=== PATIENT | female | born 1990 | race African-American/Black ===

== ENCOUNTER 2021-10-27 21:00 | Inpatient (IN) | payer OTHER ==
[2021-10-27] MEDS: DEXTROSE 5%-LACTATED RINGERS 1,000 ML IV SCH (23:15)
[2021-10-27] MEDS: MISOPROSTOL 100 MCG TABLET PV SCH (23:30)
[2021-10-28 00:06] LABS: BASO % 0.6 % (0-2.0); EOS % 2.8 % (0-4.5); HEMATOCRIT 31.1 % (32.4-45.2); HEMOGLOBIN 10.6 GM/dL (10.7-15.3); LYMPH % 18.4 % (8-40); MCH 27.3 pg (25.7-33.7); MCHC 34.2 g/dl (32.0-36.0); MEAN CELL VOLUME 79.9 fl (80-96); MEAN PLT VOLUME 7.2 fl (7.5-11.1); MONO % 10.4 % (3.8-10.2); NEUT % 67.8 % (42.8-82.8); PLATELET COUNT 323 10^3/uL (134-434); RBC 3.88 M/mm3 (3.60-5.2); RDW 15.3 % (11.6-15.6); WHITE BLOOD COUNT 6.4 K/mm3 (4.0-10.0)
[2021-10-28 00:30] LABS: INR 0.97 (0.83-1.09); PROTHROMBIN TIME (PATIENT) 11.1 SEC (9.7-13.0)
[2021-10-28 00:32] LABS: ACTIVATED PTT 26.7 SECONDS (25.2-36.5)
[2021-10-28 00:34] LABS: BLOOD UREA NITROGEN 8.6 mg/dL (7-18)
[2021-10-28 00:37] LABS: CREATININE 0.7 mg/dL (0.55-1.3)
[2021-10-28 02:30] VITALS: BMI 39.4
[2021-10-28] MEDS: MISOPROSTOL 100 MCG TABLET PV SCH (04:45)
[2021-10-28] MEDS ORDERED: FENTANYL/BUPIVACAINE/NS/PF - PCEA - 50 ML DISP.SYRIN EP ONE ×3 (08:07→16:51)
[2021-10-28] MEDS ORDERED: SODIUM CHLORIDE 1,000 ML IV STA ×2 (08:23→09:30)
[2021-10-28] MEDS: FENTANYL/BUPIVACAINE/NS/PF - PCEA - 50 ML DISP.SYRIN EP SCH ×2 (08:50→13:03)
[2021-10-28] MEDS ORDERED: NALOXONE HCL 0.4 MG/ML VIAL IVPUSH PRN (09:17)
[2021-10-28] MEDS ORDERED: OXYTOCIN 30 UNITS in 0.9% NS 30 UNIT/500 ML INFUS.BAG IVPB ONE (14:00)
[2021-10-28] MEDS ORDERED: BUPIVACAINE HCL/PF 0.25% (2.5MG/ML) 10 ML VIAL ONE (14:21)
[2021-10-28] MEDS: OXYTOCIN 30 UNITS in 0.9% NS 30 UNIT/500 ML INFUS.BAG IVPB SCH (15:55)
[2021-10-28] MEDS ORDERED: OXYTOCIN 20 UNITS in 0.9% NS 20 UNIT/1,000 ML INFUS.BAG IV ONE (16:58)
[2021-10-28 17:56] LABS: CORD BASE EXCESS -11.4 mmol/L (0-2); CORD HCO3 17.9 mmHg (20-29); CORD PCO2 53.3 mmHg (30-78); CORD pH 7.143 (7.14-7.44)
[2021-10-28 17:57] LABS: CORD BASE EXCESS -4.2 mmol/L (0-2); CORD HCO3 22.4 mmHg (20-29); CORD PCO2 46.5 mmHg (30-78); CORD pH 7.301 (7.14-7.44)
[2021-10-28] MEDS ORDERED: WITCH HAZEL 50% (TUCKS) 40 PAD/JAR PAD TP PRN (18:16)
[2021-10-28] MEDS ORDERED: BENZOCAINE 28 GM HEMORRHOIDAL OINTMENT TP PRN (18:16)
[2021-10-28] MEDS ORDERED: BENZOCAINE 20% 57 GM BOTTLE TP PRN (18:16)
[2021-10-28] MEDS ORDERED: OXYTOCIN 20 UNITS in 0.9% NS 20 UNIT/1,000 ML INFUS.BAG IV SCH (18:30)
[2021-10-28] MEDS: IBUPROFEN 600 MG TABLET (FP) PO PRN (20:33)
[2021-10-29] MEDS: IBUPROFEN 600 MG TABLET (FP) PO PRN (06:52)
[2021-10-29 08:41] LABS: BASO % 0.4 % (0-2.0); EOS % 1.7 % (0-4.5); HEMATOCRIT 29.5 % (32.4-45.2); HEMOGLOBIN 9.9 GM/dL (10.7-15.3); MCH 26.7 pg (25.7-33.7); MCHC 33.4 g/dl (32.0-36.0); MEAN PLT VOLUME 7.6 fl (7.5-11.1); MONO % 9.3 % (3.8-10.2); NEUT % 77.6 % (42.8-82.8); PLATELET COUNT 300 10^3/uL (134-434); RBC 3.69 M/mm3 (3.60-5.2); RDW 15.5 % (11.6-15.6); WHITE BLOOD COUNT 9.6 K/mm3 (4.0-10.0)
[2021-10-29] MEDS: FERROUS SO4 325 MG TABLET (FP) PO SCH (09:28)
[2021-10-29] MEDS: PRENATAL VITAMINS W/ FOLIC ACID TABLET (FP) PO SCH (09:28)
[2021-10-29] MEDS: ACETAMINOPHEN 325 MG TABLET (FP) PO PRN ×3 (09:34→20:57)
[2021-10-29] MEDS ORDERED: DIPHTH,PERTUSS(ACELL),TET 0.5 ML DISP.SYRIN IM ONE (10:00)
[2021-10-29] MEDS ORDERED: SENNOSIDES/DOCUSATE COMBO (SENNA PLUS) TABLET (UD) PO PRN (22:00)
[2021-10-30] MEDS: PRENATAL VITAMINS W/ FOLIC ACID TABLET (FP) PO SCH (10:23)
[2021-10-30] MEDS: FERROUS SO4 325 MG TABLET (FP) PO SCH (10:29)
[2021-10-30] MEDS: MISOPROSTOL 100 MCG TABLET PV SCH ×3 (20:05→20:08)
[2021-10-30] MEDS: FENTANYL/BUPIVACAINE/NS/PF - PCEA - 50 ML DISP.SYRIN EP SCH ×2 (20:05→20:07)
[2021-10-30] MEDS: DEXTROSE 5%-LACTATED RINGERS 1,000 ML IV SCH ×2 (20:06→20:07)
[2021-10-30] MEDS: OXYTOCIN 30 UNITS in 0.9% NS 30 UNIT/500 ML INFUS.BAG IVPB SCH (20:07)
[2021-10-30] MEDS: ACETAMINOPHEN 325 MG TABLET (FP) PO PRN (20:10)
[2021-10-30 22:42] VITALS: BP 129/84; PULSE 77; RESP 18; TEMP 99.3
== END 2021-10-30 23:55 | disposition home or self-care (01) | DRG 542 ==
LOC: JLDR 21:00 → J3W 10-28 19:36
PROVIDERS: ADMIT Obstetrics & Gynecology Maternal & Fetal Medicine; ATTEND Obstetrics & Gynecology Maternal & Fetal Medicine
PROC: 3E0DXGC Introduction of Other Therapeutic Substance into Mouth and Pharynx, External Approach (ICD-10-PCS; 2021-10-27)
PROC: 10E0XZZ Delivery of Products of Conception, External Approach (ICD-10-PCS; principal; 2021-10-28)
PROC: 10907ZC Drainage of Amniotic Fluid, Therapeutic from Products of Conception, Via Natural or Artificial Opening (ICD-10-PCS; 2021-10-28)
PROC: 10H003Z Insertion of Monitoring Electrode into Products of Conception, Open Approach (ICD-10-PCS; 2021-10-28)
DX: O14.94 Unspecified pre-eclampsia, complicating childbirth (principal); O26.23 Pregnancy care for patient with recurrent pregnancy loss, third trimester; O99.214 Obesity complicating childbirth; E66.9 Obesity, unspecified; Z3A.39 39 weeks gestation of pregnancy; Z37.0 Single live birth
CPT/HCPCS: 36415; 36600; 59025; 59409; 80048; 82803; 85025; 85610; 85730; 86780; 86850; 86900; 86901; 90715; C9803-CS; G0463-25; U0003; U0005